=== PATIENT | male | born 1990 | race Caucasian/White ===

== ENCOUNTER 2017-02-02 15:43 | Emergency (ER) | payer OTHER ==
[2017-02-02 15:49] VITALS: BP 137/78; PULSE 62; RESP 16; TEMP 98.2; O2SAT 98
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
== END 2017-02-02 16:26 | disposition home or self-care (01) ==
DX: S29.019A Strain of muscle and tendon of unspecified wall of thorax, initial encounter (principal); V43.52XA Car driver injured in collision with other type car in traffic accident, initial encounter; Y92.410 Unspecified street and highway as the place of occurrence of the external cause; Y99.8 Other external cause status; Y93.89 Activity, other specified